=== PATIENT | female | born 1965 | race Caucasian/White ===

== ENCOUNTER 2017-09-21 18:54 | Emergency (ER) | payer OTHER ==
[~2017-09-21] VITALS: Ht 160 cm; Wt 74.8 kg
[2017-09-21] MEDS ORDERED: SERTRALINE HCL50 MG PO (19:53)
[2017-09-21 19:54] LABS: URINE BILIRUBIN NEGATIVE (Negative); URINE BLOOD NEGATIVE (Negative); URINE COLOR YELLOW; URINE GLUCOSE-RANDOM* NEGATIVE (Negative); URINE KETONES NEGATIVE (Negative); URINE NITRITE NEGATIVE (Negative); URINE PROTEIN (DIPSTICK) NEGATIVE (Negative); URINE UROBILINOGEN 0.2 E.U./dl (0.2-1.0)
[2017-09-21] MEDS ORDERED: LISINOPRIL20 MG PO (19:54)
[2017-09-21 20:06] LABS: BACTERIA 1-9 Few /HPF (None Seen); CASTS None Seen /LPF (None Seen); CRYSTALS None Seen /LPF (None Seen); SQUAMOUS 0-3 Few /LPF (0-3); URINE RBC None Seen /HPF (0-2); URINE WBC 0-5 Rare /HPF (0-5)
[2017-09-21 20:21] LABS: ABSOLUTE NEUTROPHILS 6.1 thou/uL (1.4-8.2); BASOPHILS 0.8 % (0.0-2.0); EOSINOPHILS 0.9 % (0.0-3.0); HEMATOCRIT 38.8 % (37.0-47.0); HEMOGLOBIN 13.1 gm/dL (12.0-15.0); LYMPHOCYTES 25.1 % (24.0-44.0); MANUAL DIFF NO; MCH 29.2 pg (26.0-34.0); MCHC 33.6 g/dL (28.0-37.0); MCV 86.9 fL (80.0-100.0); MONOCYTES 3.9 % (1.0-8.0); PLATELET COUNT 254 thou/uL (150-400); POLYS 69.3 % (36.0-66.0); RBC 4.47 mil/uL (4.20-5.00); RDW 13.7 % (10.5-14.5); WBC 8.8 thou/uL (4.0-11.0)
[2017-09-21 20:29] LABS: CALCIUM 9.1 mg/dL (8.5-10.1); CREATININE 1.1 mg/dL (0.6-1.0); POTASSIUM 3.4 mmol/L (3.5-5.1)
[2017-09-21 20:35] LABS: ALBUMIN 4.2 g/dL (3.4-5.0); TOTAL BILIRUBIN 0.2 mg/dL (<0.1-1.0); TOTAL PROTEIN 7.8 g/dL (6.4-8.2)
[2017-09-21 21:43] VITALS: BP 140/86
== END 2017-09-21 21:48 | disposition home or self-care (01) ==
LOC: ER 18:54
PROVIDERS: Physician Assistant
DX: R10.12 Left upper quadrant pain (principal); K21.9 Gastro-esophageal reflux disease without esophagitis